=== PATIENT | male | born 1990 | race Caucasian/White ===

== ENCOUNTER 2017-12-12 14:45 | Outpatient (CLI) | payer OTHER | END 2017-12-12 15:00 | disposition home or self-care (01) | LOC: RAD 14:45 | DX: M25.511 Pain in right shoulder (principal) ==

== ENCOUNTER → 2017-12-12 | Outpatient (CLI) | payer OTHER ==
[~2017-12-12] MED LIST: PEPCID40 MG PO; TOBREX5 ML OP; ZOFRAN8 MG PO; ZYRTEC10 MG PO
== END | disposition home or self-care (01) ==
LOC: PPHC 13:45
DX: M25.511 Pain in right shoulder (principal)

== ENCOUNTER 2018-03-15 10:23 | Outpatient (CLI) | payer OTHER | END 2018-03-15 10:32 | disposition home or self-care (01) | LOC: LAB 10:23 | DX: I10 Essential (primary) hypertension (principal); Z01.810 Encounter for preprocedural cardiovascular examination; Z01.812 Encounter for preprocedural laboratory examination; Z01.811 Encounter for preprocedural respiratory examination; Z01.818 Encounter for other preprocedural examination ==

== ENCOUNTER 2019-11-27 11:12 | Outpatient (CLI) | payer OTHER | END 2019-11-27 11:17 | disposition home or self-care (01) | LOC: LAB 11:12 | DX: Z11.3 Encounter for screening for infections with a predominantly sexual mode of transmission (principal); R30.0 Dysuria ==

== ENCOUNTER 2020-04-27 13:33 | Emergency (ER) | payer OTHER ==
[~2020-04-27] VITALS: Ht 175.3 cm; Wt 74.8 kg
== END 2020-04-27 14:34 | disposition home or self-care (01) ==
LOC: ER 13:33
DX: S01.82XA Laceration with foreign body of other part of head, initial encounter (principal); S01.122A Laceration with foreign body of left eyelid and periocular area, initial encounter; Y04.0XXA Assault by unarmed brawl or fight, initial encounter; Y93.89 Activity, other specified; Y92.89 Other specified places as the place of occurrence of the external cause; Y99.8 Other external cause status

== ENCOUNTER → 2020-05-05 17:45 | Outpatient (CLI) | payer OTHER | END | disposition home or self-care (01) | LOC: LAB 17:45 → PPH VACUNA 17:45 | DX: Z23 Encounter for immunization (principal) ==